=== PATIENT | female | born 1990 | race Caucasian/White ===

== ENCOUNTER 2018-01-20 02:05 | Emergency (ER) | payer MEDICAID ==
[2018-01-20] MEDS ORDERED: DIPHTH,PERTUSS(ACELL),TET TOX 0.5 ML DISP.SYRIN. VAX IM (03:01)
[2018-01-20] MEDS: DIPHTH,PERTUSS(ACELL),TET TOX 0.5 ML DISP.SYRIN. VAX IM (03:07)
[2018-01-20] MEDS: IBUPROFEN 800 MG TABLET. PO (03:08)
[2018-01-20] MEDS: oxyCODONE/APAP 5/325 1 TAB TABLET PO (03:08)
[2018-01-20] MEDS: CEPHALEXIN 250 MG CAPSULE. PO (03:15)
== END 2018-01-20 03:18 | disposition home or self-care (01) ==
LOC: ER 02:05
DX: L02.415 Cutaneous abscess of right lower limb (principal); Z88.1 Allergy status to other antibiotic agents
CPT/HCPCS: 10060; 90471; 90715; 99284-25